=== PATIENT | male | born 1955 | race Caucasian/White ===

== ENCOUNTER 2022-10-06 08:48 | Outpatient (CLI) | payer MEDICARE | END 2022-10-06 08:49 | disposition home or self-care (01) | LOC: CSHULT 08:48 | PROVIDERS: ATTEND Family Medicine Sports Medicine | DX: Z13.6 Encounter for screening for cardiovascular disorders (principal) | CPT/HCPCS: 76706 ==

== ENCOUNTER 2024-06-20 13:24 | Outpatient (CLI) | payer MEDICARE ==
[~2024-06-20 13:24] MED LIST: Magnevist 469MG/ML 20 ML VIAL ONE
== END 2024-06-20 13:25 | disposition home or self-care (01) ==
LOC: CSHMRI 13:24
PROVIDERS: ATTEND Urology
DX: N28.9 Disorder of kidney and ureter, unspecified (principal); K76.9 Liver disease, unspecified; D18.03 Hemangioma of intra-abdominal structures; N13.30 Unspecified hydronephrosis
CPT/HCPCS: 74183; 82565

== ENCOUNTER 2024-08-01 09:13 | Outpatient (CLI) | payer MEDICARE ==
[2024-08-01] MEDS ORDERED: Magnevist 469MG/ML 20 ML VIAL ONE (12:27)
== END 2024-08-01 09:14 | disposition home or self-care (01) ==
LOC: CSHMRI 09:13
PROVIDERS: ATTEND Urology
DX: C61 Malignant neoplasm of prostate (principal); N32.89 Other specified disorders of bladder
CPT/HCPCS: 36415; 72197; 82565